=== PATIENT | female | born 1975 | race Caucasian/White ===

== ENCOUNTER 2017-10-06 12:04 | Emergency (ER) | payer OTHER ==
[2017-10-06 12:17] VITALS: BP 141/59; PULSE 95; TEMP 97.6; BMI 34.1
[2017-10-06] MEDS ORDERED: DIPHTH,PERTUSS(ACELL),TET 0.5 ML DISP.SYRIN IM ONE (12:25)
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
[2017-10-06] MEDS ORDERED: LIDOCAINE HCL 2% (20ML MULTI-DOSE VIAL) NR ONE (12:55)
== END 2017-10-06 13:49 | disposition home or self-care (01) ==
LOC: JERFT 12:04
PROC: 0RSXXZZ Reposition Left Finger Phalangeal Joint, External Approach (ICD-10-PCS; principal; 2017-10-06)
PROC: 2W3KX1Z Immobilization of Left Finger using Splint (ICD-10-PCS; 2017-10-06)
PROC: 3E0234Z Introduction of Serum, Toxoid and Vaccine into Muscle, Percutaneous Approach (ICD-10-PCS; 2017-10-06)
DX: S63.273A Dislocation of unspecified interphalangeal joint of left middle finger, initial encounter (principal); Y04.2XXA Assault by strike against or bumped into by another person, initial encounter; Y93.89 Activity, other specified; Y92.89 Other specified places as the place of occurrence of the external cause; Y99.8 Other external cause status
CPT/HCPCS: 73130-TC-LR-FY; 73140-TC-LT-FY; 90715; 99281-25